=== PATIENT | female | born 1995 | race Caucasian/White ===

== ENCOUNTER 2019-06-14 23:52 | Emergency (ER) | payer SELFPAY ==
[2019-06-15 00:10] VITALS: BP 124/70; PULSE 78; TEMP 98.3; BMI 35.4
[2019-06-15] MEDS ORDERED: SODIUM CHLORIDE 1,000 ML IV STA (00:37)
--- NOTE | 2019-06-15 00:43 | PDOC ---
History of Present Illness - General History Source: Patient Exam Limitations: No Limitations <Jean Pierre Foster - Last Filed: 06/15/19 03:18> <FayeAnabelle Anjelica - Last Filed: 06/15/19 03:29> - General Chief Complaint: Lightheaded Stated Complaint: DIZZY Time Seen by Provider: 06/15/19 00:01 - History of Present Illness Initial Comments: 06/15/19 00:39 HISTORY OF PRESENT ILLNESS: 23-year-old woman who denies medical history presents emergency department for evaluation of syncopal episode which occurred on 06/13 while in the shower. Patient reports he was taking a lukewarm shower after approximately 10 minutes in the shower began to feel lightheaded. At that point she began to drink shower water feeling that she may be slightly dehydrated then after a few seconds patient reports she woke up on the floor of the bathroom with left ankle pain. Patient reports throughout the day today just feeling mildly nauseous but has been able to tolerate solid foods. She reports having multiple episodes of loose brown stools throughout the day today also. Patient endorses having chills and subjective fevers throughout the day today. Of note patient reports her grandfather's brother of an NC in his 20s. Otherwise significant family history for hypertension and cardiac disease. Patient with implantable control. Patient states she had a similar episode 1 month ago was evaluated by her primary doctor and was believed that patient had a vaso-vagal episode at that time. No recent travel or sick contacts. PAST MEDICAL HISTORY: Denies past medical history SURGICAL HISTORY: Denies ALLERGIES: No known drug allergies REVIEW OF SYSTEMS General/Constitutional: Denies fever or chills. Denies weakness, weight change. HEENT: Denies change in vision. Denies ear pain or discharge. Denies sore throat. Cardiovascular: Denies chest pain or shortness of breath. Respiratory: Denies cough, wheezing, or hemoptysis. Gastrointestinal: See HPI Genitourinary: Denies dysuria, frequency, or change in urination. Musculoskeletal: Denies joint or muscle swelling or pain. Denies neck or back pain. Skin and breasts: Denies rash or easy bruising. Neurologic: See HPI Psychiatric: Denies depression or anxiety. Endocrine: Denies increased thirst. Denies abnormal weight change. Hematologic/Lymphatic: Denies anemia, easy bleeding, or history of blood clots. Allergic/Immunologic: Denies hives or skin allergy. Denies latex allergy. PHYSICAL EXAM General Appearance: Well-appearing, appropriately dressed. No apparent distress , no intoxication. HEENT: EOMI, PERRLA, normal ENT inspection, normal voice, TMs normal, pharynx normal. No conjunctival pallor. No photophobia, scleral icterus. Neck: Supple. Trachea midline. No tenderness, rigidity, carotid bruit, stridor , lymphadenopathy, or thyromegaly. Respiratory/Chest: Lungs CTAB. No shortness of breath, chest tenderness, respiratory distress, accessory muscle use. No crackles, rales, rhonchi, stridor , wheezing, dullness Cardiovascular: RRR. S1, S2. No JVD, murmur, bradycardia, tachycardia. Vascular Pulses: Dorsalis-Pedis (R): 2+, Dorsalis-Pedis (L): 2+ Gastrointestinal/Abdominal: Normal bowel sounds. Abdomen soft, non-distended. No tenderness or rebound tenderness. No organomegaly, pulsatile mass, guarding, hernia, hepatomegaly, splenomegaly. Lymphatic: No adenopathy, tenderness. Musculoskeletal/Extremities: Normal inspection. FROM of all extremities, normal capillary refill. Pelvis Stable. No CVA tenderness. No tenderness to extremities, pedal edema, swelling, erythema or deformity. Integumentary: Appropriate color, dry, warm. No cyanosis, erythema, jaundice or rash Neurologic: aws consultant II-XII intact. Fully oriented, alert. Appropriate mood/affect. Motor strength 5/5. No appreciable EOM palsy, facial droop or sensory deficit. (Jean Pierre Foster) Past History - Psycho Social/Smoking Cessation Hx Smoking History: Never smoked Hx Alcohol Use: No <Jean Pierre Foster - Last Filed: 06/15/19 03:18> <Anabelle Mckinney - Last Filed: 06/15/19 03:29> - Past Medical History Allergies/Adverse Reactions: Allergies Allergy/AdvReac Type Severity Reaction Status Date / Time No Known Allergies Allergy Verified 06/15/19 00:10 - Vital Signs Last Vital Signs Temp Pulse Resp BP Pulse Ox 98.3 F 78 20 124/70 98 06/14/19 23:55 06/14/19 23:55 06/14/19 23:55 06/14/19 23:55 06/14/19 23:55 ED Treatment Course - LABORATORY CBC & Chemistry Diagram: 06/15/19 01:06 06/15/19 01:06 <Jean Pierre Foster - Last Filed: 06/15/19 03:18> - LABORATORY CBC & Chemistry Diagram: 06/15/19 01:06 06/15/19 01:06 <Anabelle Mckinney - Last Filed: 06/15/19 03:29> - ADDITIONAL ORDERS Additional order review: Laboratory Results 06/15/19 06/15/19 06/15/19 01:20 01:20 01:06 D-Dimer Sodium Potassium Chloride Carbon Dioxide Anion Gap BUN Creatinine Est GFR (CKD-EPI)AfAm Est GFR (CKD-EPI)NonAf Random Glucose Calcium Magnesium 2.4 Total Bilirubin AST ALT Alkaline Phosphatase Creatine Kinase Troponin I Total Protein Albumin Urine Color Yellow Urine Appearance Clear Urine pH 6.0 Ur Specific [place] 1.033 Urine Protein Negative Urine Glucose (UA) Negative Urine Ketones Trace H Urine Blood 2+ H Urine Nitrite Negative Urine Bilirubin Negative Urine Urobilinogen 1.0 Ur Leukocyte Esterase Negative Urine WBC (Auto) 13.0 Urine RBC (Auto) 3.8 Urine Casts (Auto) 17 U Pathogenic Cast Auto none seen U Epithel Cells (Auto) 11.3 Urine Bacteria (Auto) 448.2 Urine HCG, Qual Negative 06/15/19 06/15/19 06/15/19 01:06 01:06 01:06 D-Dimer 272 Sodium 143 Potassium 4.3 Chloride 110 H Carbon Dioxide 28 Anion Gap 6 L BUN 11.3 Creatinine 0.8 Est GFR (CKD-EPI)AfAm 121.29 Est GFR (CKD-EPI)NonAf 104.65 Random Glucose 76 Calcium 9.0 Magnesium Total Bilirubin 0.3 AST 12 L ALT 20 Alkaline Phosphatase 89 Creatine Kinase 54 Troponin I < 0.02 Total Protein 7.4 Albumin 3.9 Urine Color Urine Appearance Urine pH Ur Specific [place] Urine Protein Urine Glucose (UA) Urine Ketones Urine Blood Urine Nitrite Urine Bilirubin Urine Urobilinogen Ur Leukocyte Esterase Urine WBC (Auto) Urine RBC (Auto) Urine Casts (Auto) U Pathogenic Cast Auto U Epithel Cells (Auto) Urine Bacteria (Auto) Urine HCG, Qual 06/15/19 01:06 RBC 4.52 MCV 93.4 MCHC 34.4 RDW 12.5 MPV 6.7 L Neutrophils % 55.8 Lymphocytes % 32.9 Monocytes % 7.9 Eosinophils % 3.0 Basophils % 0.4 - Medications Given in the ED: ED Medications Discontinued Medications Generic Name Dose Route Start Last Admin Trade Name Fernando PRN Reason Stop Dose Admin Sodium Chloride 1,000 mls @ 1,000 mls/hr 06/15/19 00:37 06/15/19 01:13 Normal Saline - IV 06/15/19 01:36 1,000 mls/hr ASDIR STA Administration Medical Decision Making <Jean Pierre Foster - Last Filed: 06/15/19 03:18> <Anabelle Mckinney - Last Filed: 06/15/19 03:29> - Medical Decision Making 06/15/19 00:44 A/P: 23-year-old woman for evaluation of syncopal episode which occurred on 06/13 Differential diagnosis includes but is not limited to: NC, PE, vasovagal, dehydration, electrolyte abnormalities, infection, neoplasm While pulmonary embolism is less likely I cannot rule out as patient is on implantable control. As incident happened greater than 24 hours ago EKG and one troponin should be sufficient to rule out cardiac etiology. Labs including d-dimer and cardiac profile Urinalysis, urine culture, urine Influenza testing EKG Noncontrast head CT Normal saline 1 L IV bolus 06/15/19 01:13 06/15/19 02:56 Laboratory Tests 06/15/19 06/15/19 06/15/19 01:06 01:06 01:06 WBC 8.1 RBC 4.52 Hgb 14.5 Hct 42.2 MCV 93.4 MCH 32.1 MCHC 34.4 RDW 12.5 Plt Count 328 MPV 6.7 L Absolute Neuts (auto) 4.5 Neutrophils % 55.8 Lymphocytes % 32.9 Monocytes % 7.9 Eosinophils % 3.0 Basophils % 0.4 Nucleated RBC % 0 D-Dimer Sodium 143 Potassium 4.3 Chloride 110 H Carbon Dioxide 28 Anion Gap 6 L BUN 11.3 Creatinine 0.8 Est GFR (CKD-EPI)AfAm 121.29 Est GFR (CKD-EPI)NonAf 104.65 Random Glucose 76 Calcium 9.0 Magnesium Total Bilirubin 0.3 AST 12 L ALT 20 Alkaline Phosphatase 89 Creatine Kinase 54 Troponin I < 0.02 Total Protein 7.4 Albumin 3.9 Urine Color Urine Appearance Urine pH Ur Specific [place] Urine Protein Urine Glucose (UA) Urine Ketones Urine Blood Urine Nitrite Urine Bilirubin Urine Urobilinogen Ur Leukocyte Esterase Urine Casts (Auto) U Epithel Cells (Auto) Urine Bacteria (Auto) Urine HCG, Qual Influenza A (Rapid) Influenza B (Rapid) 06/15/19 06/15/19 06/15/19 01:06 01:06 01:06 WBC RBC Hgb Hct MCV MCH MCHC RDW Plt Count MPV Absolute Neuts (auto) Neutrophils % Lymphocytes % Monocytes % Eosinophils % Basophils % Nucleated RBC % D-Dimer 272 Sodium Potassium Chloride Carbon Dioxide Anion Gap BUN Creatinine Est GFR (CKD-EPI)AfAm Est GFR (CKD-EPI)NonAf Random Glucose Calcium Magnesium 2.4 Total Bilirubin AST ALT Alkaline Phosphatase Creatine Kinase Troponin I Total Protein Albumin Urine Color Urine Appearance Urine pH Ur Specific [place] Urine Protein Urine Glucose (UA) Urine Ketones Urine Blood Urine Nitrite Urine Bilirubin Urine Urobilinogen Ur Leukocyte Esterase Urine Casts (Auto) U Epithel Cells (Auto) Urine Bacteria (Auto) Urine HCG, Qual Influenza A (Rapid) Negative Influenza B (Rapid) Negative 06/15/19 06/15/19 01:20 01:20 WBC RBC Hgb Hct MCV MCH MCHC RDW Plt Count MPV Absolute Neuts (auto) Neutrophils % Lymphocytes % Monocytes % Eosinophils % Basophils % Nucleated RBC % D-Dimer Sodium Potassium Chloride Carbon Dioxide Anion Gap BUN Creatinine Est GFR (CKD-EPI)AfAm Est GFR (CKD-EPI)NonAf Random Glucose Calcium Magnesium Total Bilirubin AST ALT Alkaline Phosphatase Creatine Kinase Troponin I Total Protein Albumin Urine Color Yellow Urine Appearance Clear Urine pH 6.0 Ur Specific [place] 1.033 Urine Protein Negative Urine Glucose (UA) Negative Urine Ketones Trace H Urine Blood 2+ H Urine Nitrite Negative Urine Bilirubin Negative Urine Urobilinogen 1.0 Ur Leukocyte Esterase Negative Urine Casts (Auto) 17 U Epithel Cells (Auto) 11.3 Urine Bacteria (Auto) 448.2 Urine HCG, Qual Negative Influenza A (Rapid) Influenza B (Rapid) EKG sinus rhythm rate of 63. Normal intervals present. Normal axis noted. No ischemic changes present. 06/15/19 03:18 CT scan is read by imaging on-call: Ventricular system is midline and nondilated. The sulcal pattern is normal for the patient's age. There is no bleed, mass, extra-axial fluid collection or mass-effect. No skull fracture or skull lesion is identified. The visualized paranasal sinuses and mastoid air cells are clear, other than the right maxillary sinus retention cyst or polyp. Impression: No acute pathology. Given normal EKG, normal laboratory testing and normal CT scan I feel it is safe to discharge this patient home to follow-up with her primary doctor. I will give a referral for cardiology for continued evaluation. I discussed the physical exam findings, ancillary test results and final diagnoses with the patient. I answered all of the patient's questions. The patient was satisfied with the care received and felt comfortable with the discharge plan and treatment plan. The patient will call their primary care physician within 24 hours to arrange follow-up and will return to the Emergency Department with any new, persistent or worsening symptoms. (Jean Pierre Fostre) The patient was seen and evaluated in conjunction with midlevel provider under my direct supervision, ancillary studies were reviewed. I agree with the plan as outlined with PRODUCE SORTER Cristian. HPI, workup/dispo as outlined. VS reviewed, wnl. neuro intact. EKG sinus rhythm 63 bpm. normal interval, normal axis, normal T wave morphology , normal ST segments. CT head unremarkable. labs and lytes wnl, dimer is neg, so less likely PE. will needs cards outpatient/referral given, for further monitoring and w/u syncope. anticipate discharge, pcp followup, return precautions 06/15/19 01:32 06/15/19 03:27 (Anabelle Mckinney) Discharge - Discharge Information Problems reviewed: Yes - Admission No <Jean Pierre Foster - Last Filed: 06/15/19 03:18> <Anabelle Mckinney - Last Filed: 06/15/19 03:29> - Discharge Information Clinical Impression/Diagnosis: Syncope and collapse Condition: Good Disposition: HOME - Follow up/Referral Referrals: Sarai Estrada [Primary Care Provider] - Ashok Brito MD [Staff Physician] - - Patient Discharge Instructions Additional Instructions: Your emergency department visit is incomplete until you follow-up with your primary doctor. Eat a well-balanced diet. Keep well-hydrated. Avoid sudden changes in your position. This includes from lying down to sitting or standing as well as from sitting to a standing position. Your laboratory testing, CAT scan and EKG are unremarkable here in the emergency department. You have been given a referral for a fundraising officer for continued evaluation of these episodes of passing out. Return to the emergency department for any new or worsening symptoms. - Post Discharge Activity
[2019-06-15 01:28] LABS: BASO % 0.4 % (0-2.0); HEMATOCRIT 42.2 % (32.4-45.2); HEMOGLOBIN 14.5 GM/dL (10.7-15.3); LYMPH % 32.9 % (8-40); MCH 32.1 pg (25.7-33.7); MCHC 34.4 g/dl (32.0-36.0); MEAN CELL VOLUME 93.4 fl (80-96); MEAN PLT VOLUME 6.7 fl (7.5-11.1); MONO % 7.9 % (3.8-10.2); NEUT % 55.8 % (42.8-82.8); PLATELET COUNT 328 K/MM3 (134-434); RBC 4.52 M/mm3 (3.60-5.2); RDW 12.5 % (11.6-15.6); WHITE BLOOD COUNT 8.1 K/mm3 (4.0-10.0)
[2019-06-15 01:53] LABS: ALBUMIN 3.9 g/dl (3.4-5.0); BILIRUBIN,TOTAL 0.3 mg/dL (0.2-1); BLOOD UREA NITROGEN 11.3 mg/dL (7-18); CREATININE 0.8 mg/dL (0.55-1.3); POTASSIUM 4.3 mmol/L (3.5-5.1); TOT PROT 7.4 g/dl (6.4-8.2)
[2019-06-15 02:55] LABS: EPI CELLS 11.3 /HPF (0-5/HPF); HYALINE CASTS 17 /lpf (0-8); URINE APPEARANCE CLEAR; URINE BACTERIA 448.2 /hpf (NEGATIVE); URINE BILIRUBIN NEGATIVE (NEGATIVE); URINE COLOR YELLOW; URINE GLUCOSE (UA) NEGATIVE (NEGATIVE); URINE KETONE TRACE (NEGATIVE); URINE LEUK ESTERASE NEGATIVE (NEGATIVE); URINE NITRITE NEGATIVE (NEGATIVE); URINE PROTEIN NEGATIVE (NEGATIVE)
[2019-06-15 02:59] LABS: URINE RBC 3.8 /hpf (0-4)
[2019-06-15] MEDS ORDERED: IBUPROFEN 600 MG TABLET (FP) PO ONE (03:41)
--- NOTE | 2019-06-15 17:34 | EKG ---
Test Reason : Blood Pressure : / mmHG Vent. Rate : 063 BPM Atrial Rate : 063 BPM P-R Int : 154 ms QRS Dur : 086 ms QT Int : 392 ms P-R-T Axes : 005 072 063 degrees QTc Int : 401 ms NORMAL SINUS RHYTHM WITH SINUS ARRHYTHMIA EARLY REPOLARIZATION BORDERLINE ECG NO PREVIOUS ECGS AVAILABLE CLINICAL CORRELATION IS RECOMMENDED Confirmed by MEENA OBREGON MD ([id number]) on 06/15/2019 5:34:32 PM Referred By: Confirmed By:MEENA OBREGON MD
== END 2019-06-15 03:30 | disposition home or self-care (01) ==
LOC: JER 23:52
PROC: 3E0337Z Introduction of Electrolytic and Water Balance Substance into Peripheral Vein, Percutaneous Approach (ICD-10-PCS; principal; 2019-06-14)
DX: R55 Syncope and collapse (principal)
CPT/HCPCS: 36415; 70450-TC; 80053; 81003; 82550; 83735; 84484; 84703; 85025; 85379; 87086; 87804; 93005; 93010; 99283-25; J7030